=== PATIENT | male | born 1980 | race Caucasian/White ===

== ENCOUNTER → 2024-08-04 10:18 | Outpatient (BNVA) | payer OTHER, SELFPAY | PROVIDERS: Visit Provider Family Medicine | DX: Z13.1 Encounter for screening for diabetes mellitus (principal); Z13.6 Encounter for screening for cardiovascular disorders | CPT/HCPCS: 80053; 80061; 85025 ==

== ENCOUNTER 2024-10-13 07:35 | Outpatient (CLI) | payer MEDICAID, SELFPAY ==
--- NOTE | 2024-10-13 08:00 | NM_ITS ---
WS: [id number] NUCLEAR MEDICINE HIDA SCAN WITH GALLBLADDER EJECTION FRACTION HISTORY: R10.11 - Right upper quadrant pain COMPARISON: None available. TECHNIQUE: The patient was intravenously injected with 7.9 mCi of TC99m Mebrofenin. Immediate imaging over the right upper quadrant was followed by 5 minute image and additional images for a total of 60 minutes. Normal uptake of radiotracer throughout the liver. Activity identified in the gallbladder at 15 minutes and well distended by 60 minutes. Activity in the proximal small bowel was seen by 20 minutes. Good washout of the radiotracer from the liver by 60 minutes. The patient then drank 8 ounces of Ensure Plus. Ejection fraction at 60 minutes was 87%. Normal GB ej ection fraction is 35-75%. Post fatty meal symptoms: None. NM/NM hepatobiliary w phar* [id number] IMPRESSION: 1. Normal HIDA scan. 2. Normal gallbladder ejection fraction.
== END 2024-10-13 07:36 | disposition home or self-care (01) ==
LOC: RAD 07:36
PROVIDERS: PCP Family Medicine; Visit Provider Family Medicine
DX: R10.11 Right upper quadrant pain (principal); G89.29 Other chronic pain
CPT/HCPCS: 78227; A9537

== ENCOUNTER 2024-10-28 11:40 | Outpatient (CLI) | payer MEDICAID, SELFPAY ==
--- NOTE | 2024-10-28 11:45 | US_ITS ---
WS: [id number] RIGHT UPPER QUADRANT ULTRASOUND HISTORY: heartburn COMPARISON: None available. Liver: 16.7 cm in length. Normal size liver and echogenicity. No bile duct dilatation or mass. Portal Vein: Normal hepatopetal flow with monophasic waveform. Gallbladder: Normally distended gallbladder with no stones or wall thickening. CBD: 0.3 cm Pancreas: Partially visualized. Right kidney: 11.1 cm in length. Normal size and echogenicity. No hydronephrosis or mass. Aorta and IVC: Unremarkable abdominal aorta and IVC. No ascites. US/US gall bladder 36472 IMPRESSION: Normal right upper quadrant ultrasound.
== END 2024-10-28 11:41 | disposition home or self-care (01) ==
LOC: RAD 11:41
PROVIDERS: PCP Family Medicine; Visit Provider Student in an Organized Health Care Education/Training Program
DX: R12 Heartburn (principal)
CPT/HCPCS: 76705

== ENCOUNTER 2024-11-15 09:33 | Day surgery (SDC) | payer MEDICAID, SELFPAY ==
[2024-11-15 09:41] VITALS: BP 152/98; PULSE 79; RESP 16; TEMP 36.3; O2SAT 99
[2024-11-15 09:43] VITALS: BMI 30.9
--- NOTE | 2024-11-15 10:03 | ANES.PREANE2 ---
Pre-Anesthetic Assessment Height/Weight: Height 1.85 m Weight 106.594 kg Temp Pulse Resp BP Pulse Ox O2 Del Method 97.4 F L 79 16 152/98 99 Room Air 11/15/24 09:41 11/15/24 09:41 11/15/24 09:41 11/15/24 09:41 11/15/24 09:41 11/15/24 09:41 Preop Diagnosis: RUQ Abd. Pain Operation Date: 11/15/24 10:30 Proposed Procedures p EGD 53312, R12(Not Applicable) - David Mcrae MD Familial anesthetic complications: None Was Beta Gabriella taken within 24 hours: N/A Was Clonidine taken within 24 hours: N/A Last intake: Intake Last Liquid Date 11/15/24 Last Liquid Time 00:00 Last Solid Date 11/14/24 Last Solid Time 22:00 Social Alcohol (Daily) Marijuana Occasional Exam alert, oriented x 3, clear to auscultation bilaterally and regular rate & rhythm Airway Submandibular: within normal limits Cervical ROM: within normal limits Mallampati: Class II Comments: Comments: Intact History/ROS No significant history except as noted and No significant complaints Pulmonary None reported CV/HEM None reported HLD no medication None reported Hepatic None reported GI None reported Metabolic None reported Musc/skel None reported Neuropsych None reported Anesthetic Plan ASA status: 2 Anesthesia: MAC Risk of > 500 ml blood loss (7ml/kg in children): No Medications/Allergies Home Medications ?Medication ?Instructions ?Recorded ?Confirmed ?Last Taken ?Type No Known Home Medications 08/04/24 11/11/24 Unknown History Allergies Allergy/AdvReac Type Severity Reaction Status Date / Time caffeine Allergy Intermediate ADR-Abdominal Verified 11/11/24 10:44 Pain [facility] Anesthesia Surgical History (Updated 10/20/24 @ 08:07 by MAK Sanchez) History of tonsillectomy History of wisdom tooth extraction Family History Grandfather Heart disease paternal Cancer Stroke maternal Mother Heart disease brain bleed and abnormal heart rhythm, Arrhythmia Thyroid disease Grandmother Cancer maternal Denies family history of Diabetes Chronic kidney disease (CKD) Social History (Updated 10/20/24 @ 08:07 by MAK Sanchez) Smoking and tobacco/nicotine status: former use of tobacco/nicotine (quit in 2009) Alcohol intake: current Alcohol intake frequency: 3 or more drinks per day Alcohol type: beer and wine Data Anesthesia Cardiac Studies: No Data to Display
--- NOTE | 2024-11-15 10:46 | W.PM.OPSUD ---
Surgery/Procedure H&P Update DATE OF PROCEDURE: November 15, 2024 DATE H&P PERFORMED: 10/20/24 H&P UPDATE INFORMATION: I have reviewed H&P completed within last 30 days, I have examined patient prior to procedure and No changes to prior documentation PREOP DIAGNOSIS: RUQ Abd. Pain PLANNED PROCEDURE: Operation Date: 11/15/24 10:30 Proposed Procedures p EGD 17191, R12(Not Applicable) - David Mcrae MD
[2024-11-15 11:06] VITALS: BP 137/84; PULSE 77; RESP 18; TEMP 36.3; O2SAT 100
[2024-11-15 11:34] VITALS: BP 124/74; PULSE 76; RESP 18; O2SAT 99
--- NOTE | 2024-11-15 11:36 | ANE.PACU2 ---
Inpatient post-anesthesia follow up: Airway intact: Yes Vital signs: Temperature 97.4 F Pulse Rate 76 Respiratory Rate 18 Blood Pressure 124/74 Pulse Oximetry 99 Oxygen Delivery Me thod Room Air Oxygen Flow Rate Fraction of Inspir ed Oxygen Hydration adequate: Yes Nausea and vomiting: No Pain level: 1 Mental status: Baseline
== END 2024-11-15 11:37 | disposition home or self-care (01) ==
PROVIDERS: PCP Family Medicine; Visit Provider Student in an Organized Health Care Education/Training Program
PROC: 0DJ08ZZ Inspection of Upper Intestinal Tract, Via Natural or Artificial Opening Endoscopic (ICD-10-PCS; principal; 2024-11-15 10:30)
DX: K29.50 Unspecified chronic gastritis without bleeding (principal); E78.5 Hyperlipidemia, unspecified; Z91.048 Other nonmedicinal substance allergy status; Z87.891 Personal history of nicotine dependence
CPT/HCPCS: 43239; 88305

== ENCOUNTER → 2025-08-17 09:28 | Outpatient (BNVA) | payer MEDICAID, SELFPAY | PROVIDERS: PCP Family Medicine; Visit Provider Family Medicine | DX: Z13.1 Encounter for screening for diabetes mellitus (principal); Z13.6 Encounter for screening for cardiovascular disorders | CPT/HCPCS: 80053; 80061 ==